=== PATIENT | female | born 1940 ===

== ENCOUNTER 2018-04-06 07:42 | Day surgery (SDC) | payer MEDICARE, OTHER ==
[~2018-04-06] VITALS: Ht 157.5 cm; Wt 64.4 kg
[~2018-04-06 07:42] MED LIST: Synthroid125 MCG
== END 2018-04-06 09:31 | disposition home or self-care (01) ==
LOC: ORSCSDS 07:42
PROVIDERS: Ophthalmology
PROC: 08RK3JZ Replacement of Left Lens with Synthetic Substitute, Percutaneous Approach (ICD-10-PCS; principal; 2018-04-06 09:00)
DX: H25.12 Age-related nuclear cataract, left eye (principal); E03.9 Hypothyroidism, unspecified; Z79.899 Other long term (current) drug therapy
CPT/HCPCS: J2001; J2250; J3010; J3301; J7120; V2632

== ENCOUNTER → 2019-01-17 | Outpatient (CLI) | payer MEDICARE, OTHER | END | disposition home or self-care (01) | LOC: PLD 08:51 → LAB SHORT 08:51 | DX: L82.1 Other seborrheic keratosis (principal) | CPT/HCPCS: 88305 ==

== ENCOUNTER → 2019-01-30 | Outpatient (CLI) | payer MEDICARE, OTHER | END | disposition home or self-care (01) | LOC: LAB 18:22 → LAB SHORT 18:22 | DX: L08.0 Pyoderma (principal) | CPT/HCPCS: 87070; 87205 ==

== ENCOUNTER 2022-01-29 13:07 | Day surgery (SDC) | payer MEDICARE, OTHER ==
[~2022-01-29] VITALS: Ht 188 cm; Wt 65.2 kg
== END 2022-01-29 14:41 | disposition home or self-care (01) ==
LOC: ORSCSDS 13:07
PROVIDERS: Surgery
PROC: 0DBM8ZX Excision of Descending Colon, Via Natural or Artificial Opening Endoscopic, Diagnostic (ICD-10-PCS; principal; 2022-01-29 14:15)
DX: R19.5 Other fecal abnormalities (principal); K62.5 Hemorrhage of anus and rectum; K52.9 Noninfective gastroenteritis and colitis, unspecified; K57.30 Diverticulosis of large intestine without perforation or abscess without bleeding; K64.2 Third degree hemorrhoids; I10 Essential (primary) hypertension; Z85.3 Personal history of malignant neoplasm of breast; Z79.899 Other long term (current) drug therapy
CPT/HCPCS: 88305; J2704; J7120

== ENCOUNTER → 2023-03-08 | Outpatient (CLI) | payer MEDICARE, OTHER | LOC: LAB SHORT 08:19 → LAB 08:19 | DX: C44.629 Squamous cell carcinoma of skin of left upper limb, including shoulder (principal); L85.8 Other specified epidermal thickening | CPT/HCPCS: 88305 ==

== ENCOUNTER → 2023-03-30 | Outpatient (CLI) | payer MEDICARE, OTHER | LOC: LAB 07:32 → LAB SHORT 07:32 | DX: C44.629 Squamous cell carcinoma of skin of left upper limb, including shoulder (principal) | CPT/HCPCS: 88305 ==